=== PATIENT | female | born 1985 | race Caucasian/White ===

== ENCOUNTER 2018-08-07 03:29 | Inpatient (IN) | payer OTHER ==
[2018-08-07] MEDS ORDERED: METHYLERGONOVINE 0.2 MG INJ IM ×2 (04:00→17:30)
[2018-08-07] MEDS ORDERED: BUTORPHANOL 2 MG INJ IV (04:00)
[2018-08-07] MEDS ORDERED: MISOPROSTOL 200 MCG TAB PR ×2 (04:00→17:30)
[2018-08-07] MEDS ORDERED: OXYTOCIN 30 UNITS/LR 500 ML IV ×3 (04:00→17:30)
[2018-08-07] MEDS ORDERED: CARBOPROST 250 MCG INJ IM ×2 (04:00→17:30)
[2018-08-07] MEDS ORDERED: LIDOCAINE 1% (MPF) 30 ML INJ INJ (04:00)
[2018-08-07] MEDS: LACTATED RINGER'S 1,000 ML IV ×3 (04:05→11:06)
[2018-08-07 04:14] LABS: ADD MAN DIFF? NO
[2018-08-07 04:16] LABS: WHITE BLOOD COUNT 9.8 10^3/ul (4.8-10.8)
[2018-08-07 04:16] LABS: BASOPHILS % 0.2 % (0.0-2.0); EOSINOPHILS % 0.4 % (0.0-7.0); HEMATOCRIT 36.3 % (37.0-47.0); HEMOGLOBIN 12.9 g/dl (12.0-16.0); LYMPHOCYTES % 20.3 % (15.0-51.0); MEAN CORPUSCULAR HEMOGLOBIN 31.9 pg (29.0-33.0); MEAN CORPUSCULAR HGB CONC 35.5 g/dl (32.0-37.0); MEAN CORPUSCULAR VOLUME 89.6 fl (82.0-101.0); MEAN PLATELET VOLUME 11.4 fl (7.4-10.4); MONOCYTE # 0.6 10^3/ul (0.3-0.9); MONOCYTES % 6.1 % (0.0-11.0); NEUTROPHIL # 7.1 10^3/ul (1.6-7.5); NEUTROPHILS % 72.7 % (39.0-77.0); PLATELET COUNT 157 10^3/UL (140-415); RED BLOOD COUNT 4.05 10^6/ul (4.20-5.40); RED CELL DISTRIBUTION WIDTH 13.7 % (11.5-14.5)
[2018-08-07] MEDS ORDERED: NALOXONE (0.4 MG/ML) INJ IV (04:30)
[2018-08-07] MEDS ORDERED: FENTAnyl 2MCG/ML-ROPIV 0.2% 100 ML (04:33)
[2018-08-07] MEDS ORDERED: KETOROLAC 30 MG INJ (04:34)
[2018-08-07 04:35] LABS: INR 0.87; PROTIME 11.9 Sec (11.9-14.9); PT RATIO 0.9
[2018-08-07 04:36] LABS: PARTIAL THROMBOPLASTIN TIME 26.7 Sec (23.0-35.0)
[2018-08-07 05:00] LABS: AMPHETAMINE/METHAMPHETAMINE Negative (NEGATIVE); BARBITURATES Negative (NEGATIVE); BENZODIAZEPINES Negative (NEGATIVE); CANNABINOIDS Positive (NEGATIVE); COCAINE Negative (NEGATIVE); OPIATES Negative (NEGATIVE)
[2018-08-07 05:21] LABS: HEPATITIS B SURFACE ANTIGEN NEGATIVE (NEGATIVE)
[2018-08-07] MEDS: OXYTOCIN 30 UNITS/LR 500 ML IV ×2 (07:00→15:17)
[2018-08-07] MEDS: FENTAnyl 2MCG/ML-ROPIV 0.2% 100 ML BAG EPI (11:37)
[2018-08-07] MEDS: MINERAL OIL LIGHT 10 ML VIAL TOP (17:16)
[2018-08-07] MEDS: DEXTROSE 5%-LR 1,000 ML IV (17:20)
[2018-08-07] MEDS ORDERED: LACTATED RINGER'S 1,000 ML IV* (17:20)
[2018-08-07] MEDS ORDERED: ONDANSETRON 4 MG INJ IV (17:30)
[2018-08-07] MEDS ORDERED: SENNA/DOCUSATE NA (8.6MG/50MG) TAB PO (17:30)
[2018-08-07] MEDS ORDERED: OXYCODONE/ASPIRIN (4.88/325) TAB PO (17:30)
[2018-08-07] MEDS ORDERED: ACETAMINOPHEN 325 MG TAB PO (17:30)
[2018-08-07] MEDS ORDERED: DIBUCAINE 1% 30 GM OINT TOP (17:30)
[2018-08-07] MEDS ORDERED: MAGNESIUM HYDROXIDE 30ML CUP PO (17:30)
[2018-08-07] MEDS ORDERED: ZOLPIDEM 5 MG TAB PO (17:30)
[2018-08-07] MEDS ORDERED: DIPHENHYDRAMINE 50 MG INJ IV (17:30)
[2018-08-07] MEDS: IBUPROFEN 600 MG TAB PO (18:21)
[2018-08-07] MEDS: BENZOCAINE 20% 56 ML SPRAY TOP (18:22)
[2018-08-07] MEDS: LANOLIN HPA 1 PKT TOP (18:22)
[2018-08-07] MEDS: WITCH HAZEL/GLYCERIN PAD PR (18:22)
[2018-08-07 21:46] LABS: RAPID PLASMA REAGIN NONREACTIVE (NR)
[2018-08-08] MEDS: IBUPROFEN 600 MG TAB PO ×5 (00:13→23:35)
[2018-08-08] MEDS: LANOLIN HPA 1 PKT TOP (05:51)
[2018-08-08 06:57] LABS: ADD MAN DIFF? NO
[2018-08-08 07:02] LABS: BASOPHILS % 0.2 % (0.0-2.0); EOSINOPHILS % 0.4 % (0.0-7.0); HEMOGLOBIN 11.1 g/dl (12.0-16.0); LYMPHOCYTES # 2.3 10^3/ul (0.8-2.9); LYMPHOCYTES % 21.7 % (15.0-51.0); MEAN CORPUSCULAR HEMOGLOBIN 31.7 pg (29.0-33.0); MEAN CORPUSCULAR HGB CONC 34.7 g/dl (32.0-37.0); MEAN CORPUSCULAR VOLUME 91.4 fl (82.0-101.0); MONOCYTE # 0.7 10^3/ul (0.3-0.9); MONOCYTES % 6.3 % (0.0-11.0); NEUTROPHIL # 7.6 10^3/ul (1.6-7.5); PLATELET COUNT 140 10^3/UL (140-415); RED CELL DISTRIBUTION WIDTH 13.9 % (11.5-14.5)
[2018-08-08 07:02] LABS: WHITE BLOOD COUNT 10.7 10^3/ul (4.8-10.8)
[2018-08-09] MEDS: IBUPROFEN 600 MG TAB PO ×2 (05:28→12:30)
[2018-08-09] MEDS: DIPHTH/TET/ACEL PERTUSS (ADULT) 0.5 ML VIAL IM* (10:30)
[2018-08-09] MEDS: MEASLES,MUMPS,RUBELLA VACCINE INJ SC* (12:30)
== END 2018-08-09 15:40 | disposition home or self-care (01) | DRG 807 ==
LOC: OBT 03:29 → L-D 03:30 → OBT 03:45 → L-D 03:45 → PP1 17:30
PROC: 10E0XZZ Delivery of Products of Conception, External Approach (ICD-10-PCS; principal; 2018-08-07)
PROC: 0UQGXZZ Repair Vagina, External Approach (ICD-10-PCS; 2018-08-07)
DX: O71.4 Obstetric high vaginal laceration alone (principal); Z37.0 Single live birth; Z3A.40 40 weeks gestation of pregnancy
CPT/HCPCS: 62322; 80307; 85025; 85610; 85730; 86592; 86850; 86900; 86901; 87340; 90715; 99464

== ENCOUNTER 2018-08-15 02:44 | Emergency (ER) | payer OTHER ==
[2018-08-15] MEDS: KETOROLAC 60 MG INJ IM (04:48)
[2018-08-15] MEDS: NITROGLYCERIN 2% 1 GM OINT PKT TD (04:48)
[2018-08-15] MEDS: LIDOCAINE 5% 35 GM OINT TOP (04:59)
[2018-08-15] MEDS ORDERED: LIDOCAINE 4% CR TOP (05:00)
== END 2018-08-15 06:03 | disposition home or self-care (01) ==
LOC: FTE 02:44
DX: O87.2 Hemorrhoids in the puerperium (principal)
CPT/HCPCS: 96372; 99284-25